=== PATIENT | female | born 1990 | race Two or more races ===

== ENCOUNTER 2016-11-17 04:45 | Inpatient (IN) | payer OTHER ==
[2016-11-17] MEDS: DEXTROSE 5%-LACTATED RINGERS 1,000 ML IV SCH ×2 (05:30→10:32)
[2016-11-17 05:54] LABS: BASOPHIL 0.5 % (0-2.0); EOSINOPHIL 0.1 % (0-4.5); MCH 30.6 pg (25.7-33.7); MCHC 32.8 g/dl (32.0-36.0); MEAN CELL VOLUME 93.4 fl (80-96); MEAN PLT VOLUME 9.3 fl (7.5-11.1); NEUTROPHILS 86.1 % (42.8-82.8); PLATELET COUNT 200 K/MM3 (134-434); RDW 13.1 % (11.6-15.6); WHITE BLOOD COUNT 14.8 K/mm3 (4.0-10.0)
[2016-11-17 05:59] VITALS: BMI 30.9
[2016-11-17 06:06] LABS: INR 0.89 (0.82-1.09); PROTHROMBIN TIME (PATIENT) 9.8 SEC (9.98-11.88)
[2016-11-17 06:09] LABS: ACTIVATED PTT 27.6 SECONDS (26.9-34.4)
[2016-11-17 06:22] LABS: ANION GAP 10 (8-16); CALCIUM 9.1 mg/dL (8.5-10.1); CO2 25 mmol/L (21-32); CREATININE 0.7 mg/dL (0.55-1.02); GLUCOSE,RANDOM 82 mg/dL (74-106)
[2016-11-17] MEDS ORDERED: ALBUTEROL SO4 6.7 GM HFA INHALER IH PRN (08:01)
--- NOTE | 2016-11-17 08:13 | HP ---
Past Medical History - Primary Care Physician PCP:: Anatoliy Landers - Admission Chief Complaint: 39.6 weeks, rom, labor History of Present Illness: 26 yo f , edc 11/21/16 with srom and contraction since this am, fhr cat 1 , irregular contraction History Source: Patient Limitations to Obtaining History: No Limitations - Past Medical History Pulmonary: Yes: Asthma ...: 2 ...Para: 0 ...Term: 0 ...: 0 ...Spon : 0 ...Induced : 1 ...Multiple Gestation: 0 ...EDC by [facility]: 11/13/16 - Past Surgical History Hx Myomectomy: No Hx Transabdominal Cerclage: No - Smoking History Smoking history: Never smoked Have you smoked in the past 12 months: No Aproximately how many cigarettes per day: 0 - Alcohol/Substance Use Hx Alcohol Use: No - Social History History of Recent Travel: No Home Medications - Allergies Allergies/Adverse Reactions: Allergies Allergy/AdvReac Type Severity Reaction Status Date / Time No Known Allergies Allergy Verified 10/09/12 16:06 - Home Medications Home Medications: Ambulatory Orders Albuterol Sulfate Inhaler - [Ventolin HFA Inhaler -] 1 puff PO PRN PRN 11/17/16 Ferrous Sulfate [Feosol] 325 mg PO DAILY 11/17/16 Vit/Iron Fumarate/FA [ Tablet] 1 tablet PO DAILY 11/17/16 Wheat Dextrin [Benefiber] 1 pack PO DAILY 11/17/16 Review of Systems - Review of Systems Constitutional: reports: No Symptoms Eyes: reports: No Symptoms Neck: reports: No Symptoms Cardiovascular: reports: No Symptoms Respiratory: reports: No Symptoms Gastrointestinal: reports: No Symptoms Genitourinary: reports: No Symptoms Breasts: reports: No Symptoms Reported Musculoskeletal: reports: No Symptoms Integumentary: reports: No Symptoms Neurological: reports: No Symptoms Endocrine: reports: No Symptoms Psychiatric: reports: No Symptoms Physical Exam - Maternity Vital Signs: Vital Signs Temperature 98.4 F 11/17/16 07:59 Pulse Rate 68 11/17/16 07:00 Respiratory Rate 20 11/17/16 07:00 Blood Pressure 129/71 11/17/16 07:00 O2 Sat by Pulse Oximetry (%) Constitutional: Yes: Well Nourished, No Distress, Calm Eyes: Yes: WNL, Conjunctiva Clear, EOM Intact HENT: Yes: WNL, Atraumatic, Normocephalic Neck: Yes: WNL, Supple, Trachea Midline Cardiovascular: Yes: WNL, Regular Rate and Rhythm Breast(s): Yes: WNL - Abdominal Exam/OB Fundal Height: 40 Number of Fetuses: Single Presentation: Vertex Contractions: Yes Regularity: Irregular Intensity: Mod/Strong Monitor Mode: External Heart Rate Location: [facility] Category: I Accelerations: Uniform Decelerations: None - Vaginal Exam/OB Vaginal Bleediing: No Speculum Exam: No Dilatation (cm): 1 cm Effacement (%): 80 Amniotic Membrane Status: Ruptured Nitrazine Test: Positive Amniotic Fluid: Yes: Clear Presentation: Vertex/Position Station: -2 - Physical Exam Musculoskeletal: Yes: WNL Extremities: Yes: WNL Edema: Yes Edema: LLE: Trace, RLE: Trace Deep Tendon Reflex Grade: Normal +2 - Labs Lab Results: CBC, BMP 11/17/16 05:30 11/17/16 05:30 Hemorrhage Risk Assessment - Risk Factors Medium Risk Factors: Yes: None Risk Score: 0 Risk Level: Low Risk Problem List - Problems (1) with 39 completed weeks gestation Code(s): Z3A.39 - 39 WEEKS GESTATION OF (2) membrane rupture Code(s): [id number] - (3) Labor established Code(s): [id number] - Assessment/Plan admit, fhm,
--- NOTE | 2016-11-17 10:48 | PN ---
Progress Note (short form) - Note Progress Note: had episode of bradycardia with good recovery, cx 7 to 8 vx 0 mr, clear , scalp electrode applied, LT side, o2, revaluate Problem List - Problems (1) with 39 completed weeks gestation Code(s): Z3A.39 - 39 WEEKS GESTATION OF (2) membrane rupture Code(s): [id number] - (3) Labor established Code(s): CUF6400 -
--- NOTE | 2016-11-17 11:06 | PN ---
Progress Note (short form) - Note Progress Note: cx 9 cm 80 vx !+ .o.p fhr cat 1 . contraction irregular plan pitocin stimulation to rotate head Problem List - Problems (1) with 39 completed weeks gestation Code(s): Z3A.39 - 39 WEEKS GESTATION OF (2) membrane rupture Code(s): NQP3200 - (3) Labor established Code(s): ZFW0556 -
[2016-11-17] MEDS ORDERED: OXYTOCIN 15 UNITS/ LR 250 ML 250 ML IVPB SCH (11:15)
[2016-11-17] MEDS: D5W-LR W/ 20 UNITS OXYTOCIN 1,000 ML IV SCH ×2 (12:00→13:58)
[2016-11-17] MEDS ORDERED: WITCH HAZEL 50% (TUCKS) 40 PAD/JAR PAD TP PRN (12:06)
[2016-11-17] MEDS ORDERED: BENZOCAINE 20% 57 GM BOTTLE TP PRN (12:06)
[2016-11-17] MEDS ORDERED: BENZOCAINE 28 GM HEMORRHOIDAL OINTMENT TP PRN (12:06)
[2016-11-17] MEDS ORDERED: IBUPROFEN 600 MG TABLET (FP) PO PRN (12:06)
[2016-11-17] MEDS ORDERED: ACETAMINOPHEN 325 MG TABLET (FP) PO PRN (12:06)
[2016-11-17] MEDS ORDERED: oxyCODONE HCL 5 MG TABLET PO PRN (12:06)
[2016-11-17] MEDS ORDERED: BISACODYL 10 MG SUPP.RECT RC PRN (12:06)
[2016-11-17] MEDS ORDERED: METHYLERGONOVINE MALEATE 0.2 MG/1 ML AMP IM PRN (12:06)
[2016-11-17 12:49] LABS: VENOUS BLOOD GAS HCO3 20.8 meq/L (19-25); VENOUS PH 7.34 (7.32-7.42)
[2016-11-17] MEDS: FERROUS SO4 325 MG TABLET (FP) PO SCH (23:23)
[2016-11-18 08:07] LABS: RUBELLA ANTIBODY,IGM <20.0 AU/mL (0.0-19.9)
[2016-11-18 08:44] LABS: BASOPHIL 0.2 % (0-2.0); MCH 30.9 pg (25.7-33.7); MCHC 32.9 g/dl (32.0-36.0); MEAN CELL VOLUME 93.9 fl (80-96); MEAN PLT VOLUME 9.1 fl (7.5-11.1); PLATELET COUNT 165 K/MM3 (134-434); RDW 12.9 % (11.6-15.6); WHITE BLOOD COUNT 14.3 K/mm3 (4.0-10.0)
--- NOTE | 2016-11-18 09:19 | PN ---
Post Progress Note - Subjective Subjective: 26 yo Para 1 status post vaginal delivery, seen and evaluated. Doing well, no complaints. Post Day: 1 Type of Delivery: Vital Signs: Vital Signs Temperature 98.0 F 11/18/16 05:00 Pulse Rate 84 11/18/16 05:00 Respiratory Rate 18 11/18/16 05:00 Blood Pressure 127/76 11/18/16 05:00 O2 Sat by Pulse Oximetry (%) Breast Exam: Yes: Soft Uterus: Yes: Fundus Firm Abdomen/GI: Yes: Abdomen soft, Tolerating PO Lochia: Yes: Rubra Lochia, amount: Moderate Extremities: Yes: Calves non-tender Perineum: Yes: Episiotomy Activity: Ambulating - Labs Labs: CBC WBC 14.3 K/mm3 (4.0-10.0) H 11/18/16 07:35 RBC 3.61 M/mm3 (3.60-5.2) 11/18/16 07:35 Hgb 11.2 GM/dL (10.7-15.3) D 11/18/16 07:35 Hct 33.9 % (32.4-45.2) 11/18/16 07:35 MCV 93.9 fl (80-96) 11/18/16 07:35 MCH 30.9 pg (25.7-33.7) 11/18/16 07:35 MCHC 32.9 g/dl (32.0-36.0) 11/18/16 07:35 RDW 12.9 % (11.6-15.6) 11/18/16 07:35 Plt Count 165 K/MM3 (134-434) 11/18/16 07:35 MPV 9.1 fl (7.5-11.1) 11/18/16 07:35 Neutrophils % 84.0 % (42.8-82.8) H 11/18/16 07:35 Lymphocytes % 10.3 % (8-40) 11/18/16 07:35 Monocytes % 5.5 % (3.8-10.2) 11/18/16 07:35 Eosinophils % 0.0 % (0-4.5) D 11/18/16 07:35 Basophils % 0.2 % (0-2.0) 11/18/16 07:35 Problem List - Problems (1) Status post normal vaginal delivery Code(s): [id number] - Assessment/Plan Status post vaginal delivery Stable Continue routine care
[2016-11-18] MEDS: PRENATAL VITAMINS W/ FOLIC ACID TABLET (FP) PO SCH (09:49)
[2016-11-18] MEDS: FERROUS SO4 325 MG TABLET (FP) PO SCH ×2 (09:49→22:34)
[2016-11-18] MEDS ORDERED: SENNOSIDES/DOCUSATE COMBO (SENNA PLUS) TABLET (UD) PO PRN (22:00)
--- NOTE | 2016-11-19 02:31 | PN ---
Progress Note (short form) - Note Progress Note: ppd 2 no c/o voids , no excess vaginal bleeding CBC, BMP 11/18/16 07:35 11/17/16 05:30 Last Vital Signs Temp Pulse Resp BP Pulse Ox 97.9 F 78 20 122/71 11/18/16 22:00 11/18/16 22:00 11/18/16 22:00 11/18/16 22:00 abdomen soft, non tender , no cva uterus firm lochia mild plan d/c home , rtc 4 weeks, instruction given Problem List - Problems (1) with 39 completed weeks gestation Code(s): Z3A.39 - 39 WEEKS GESTATION OF (2) membrane rupture Code(s): SPT4381 - (3) Labor established Code(s): VNS2521 -
--- NOTE | 2016-11-19 02:32 | DS ---
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 Vital Signs: Vital Signs Temperature 97.9 F 11/18/16 22:00 Pulse Rate 78 11/18/16 22:00 Respiratory Rate 20 11/18/16 22:00 Blood Pressure 122/71 11/18/16 22:00 O2 Sat by Pulse Oximetry (%) Constitutional: Yes: Well Nourished, No Distress, Calm Eyes: Yes: WNL, Conjunctiva Clear, EOM Intact HENT: Yes: WNL, Atraumatic, Normocephalic Neck: Yes: WNL, Supple, Trachea Midline Cardiovascular: Yes: WNL, Regular Rate and Rhythm Respiratory: Yes: WNL, Regular, CTA Bilaterally Gastrointestinal: Yes: WNL ...Rectal Exam: Yes: WNL Renal/: Yes: WNL ....Post : Yes: Uterus firm, Uterus non-tender, Slight lochia rubra Breast(s): Yes: WNL Musculoskeletal: Yes: WNL Extremities: Yes: WNL Edema: No Integumentary: Yes: WNL Neurological: Yes: WNL, Alert, Oriented ...Motor Strength: WNL Psychiatric: Yes: WNL, Alert, Oriented Labs: CBC, BMP 11/18/16 07:35 11/17/16 05:30 Delivery - Delivery Vaginal Delivery: Spontaneous (no complication) Type of Anesthesia: Local Episiotomy/Laceration: Midline EBL (cc): 300 Delivery, Single - Stages of Labor Date 1st Stage Initiatied: 11/17/16 Time 1st Stage Initiated: 01:00 Date 2nd Stage Initiated: 11/17/16 Time 2nd Stage Initiated: 11:30 Date of Delivery: 11/17/16 Time of Delivery: 11:52 Time Placenta Delivered: 12:00 Placenta: Yes: Spontaneous (no complication) - Condition of Clinical Education Manager/Investment Advisor Present: Yes Name: Diane Johnson Infant Gender: Male Weight: 6 lb 12 oz Position: Left, OA Total Hours ROM (Hrs/Mins): 8/10 - 1 Minute Total Score: 8 5 Minutes Total Score: 9 - Feeding Plan Initial Plan: Exclusive throughout hospitalization Discharge Summary Reason For Visit: ADMIT LABOR Current Active Problems membrane rupture (Acute) Labor established (Acute) with 39 completed weeks gestation (Acute) Status post normal vaginal delivery (Acute) Procedures: Principal: Hospital Course: no complication Condition: Good - Instructions Diet, Activity, Other Instructions: regular diet, follow up [facility] care 4 weeks Referrals: Anatoliy Landers MD [Family Provider] - Disposition: HOME - Home Medications Comprehensive Discharge Medication List: Ambulatory Orders Albuterol Sulfate Inhaler - [Ventolin HFA Inhaler -] 1 puff PO PRN PRN 11/17/16 Ferrous Sulfate [Feosol] 325 mg PO DAILY 11/17/16 Vit/Iron Fumarate/FA [ Tablet] 1 tablet PO DAILY 11/17/16 Wheat Dextrin [Benefiber] 1 pack PO DAILY 11/17/16 Ibuprofen [Motrin -] 600 mg PO QID #28 tablet 11/18/16
[2016-11-19] MEDS ORDERED: DIPHTH,PERTUSS(ACELL),TET 0.5 ML DISP.SYRIN IM ONE (07:00)
[2016-11-19] MEDS: PRENATAL VITAMINS W/ FOLIC ACID TABLET (FP) PO SCH (10:36)
[2016-11-19] MEDS: FERROUS SO4 325 MG TABLET (FP) PO SCH (10:36)
[2016-11-19 11:10] VITALS: BP 125/74; PULSE 75; TEMP 98.4
== END 2016-11-19 18:00 | disposition home or self-care (01) | DRG 560 ==
LOC: JDEL 04:45 → JLDR 05:05 → J3W 14:10
PROVIDERS: ADMIT Obstetrics & Gynecology; ATTEND Obstetrics & Gynecology
PROC: 10E0XZZ Delivery of Products of Conception, External Approach (ICD-10-PCS; principal; 2016-11-17)
PROC: 0W8NXZZ Division of Female Perineum, External Approach (ICD-10-PCS; 2016-11-17)
DX: O80 Encounter for full-term uncomplicated delivery (principal); Z3A.39 39 weeks gestation of pregnancy; Z37.0 Single live birth
CPT/HCPCS: 36415; 59409; 80048; 82803; 85025; 85610; 85730; 86593; 86762; 86850; 86900; 86901; 87340; 90715

== ENCOUNTER 2023-08-19 04:25 | Day surgery (SDC) | payer OTHER ==
[2023-08-12 14:04] VITALS: BMI 34.3
[~2023-08-19 04:25] MED LIST: LACTATED RINGERS SOLUTION 1,000 ML IV SCH; ONDANSETRON 4 MG/2 ML VIAL IVPUSH PRN; oxyCODONE HCL 5 MG TABLET PO PRN
[2023-08-19 09:53] VITALS: RESP 18
[2023-08-19] MEDS ORDERED: LIDOCAINE HCL/PF 2% SDV 5ML VIAL ONE (10:23)
[2023-08-19] MEDS ORDERED: PROPOFOL 20 ML ONE (10:23)
[2023-08-19] MEDS ORDERED: FENTANYL CITRATE/PF 50 MCG/ML VIAL ONE (10:23)
[2023-08-19] MEDS ORDERED: MIDAZOLAM HCL 2 MG/2 ML SINGLE DOSE VIAL ONE (10:24)
[2023-08-19] MEDS ORDERED: ROCURONIUM BROMIDE 50 MG/5 ML SYRINGE ONE (11:23)
[2023-08-19 16:12] VITALS: PULSE 62
[2023-08-19 16:20] VITALS: BP 99/59; TEMP 98.1
== END 2023-08-19 16:00 | disposition home or self-care (01) ==
LOC: JASU-SURG 04:25
PROVIDERS: ATTEND Student in an Organized Health Care Education/Training Program
PROC: 0UPD8HZ Removal of Contraceptive Device from Uterus and Cervix, Via Natural or Artificial Opening Endoscopic (ICD-10-PCS; principal; 2023-08-19 11:00)
DX: T83.89XA Other specified complication of genitourinary prosthetic devices, implants and grafts, initial encounter (principal)
CPT/HCPCS: 81025; 88300-TC; 94760